=== PATIENT | male | born 1975 ===

== ENCOUNTER 2023-09-21 09:58 | Emergency (ER) | payer MEDICAID, OTHER ==
[~2023-09-21] VITALS: Ht 165.1 cm; Wt 90.9 kg
[2023-09-21 11:30] LABS: Basophils # (auto) 0 10 ^3/uL (0-0.2); Basophils % (auto) 0.5 % (0.0-2.0); Eosinophils # (auto) 0.1 10 ^3/uL (0-0.8); Eosinophils % (auto) 1.6 % (0.0-7.0); Hematocrit 43.1 % (41.0-53.0); Lymphocytes # (auto) 1.7 10 ^3/uL (0.4-5.4); Lymphocytes % (auto) 25.7 % (10.0-50.0); Mean Corpuscular Hemoglobin 29.4 pg (28.0-32.0); Mean Corpuscular Hgb Conc. 34.8 g/dL (32.0-36.0); Mean Corpuscular Volume 84.5 fL (80.0-100.0); Monocytes # (auto) 0.5 10 ^3/uL (0-1.3); Monocytes % (auto) 7.8 % (0.0-12.0); Neutrophils # (auto) 4.2 10 ^3/uL (1.6-8.6); Neutrophils % (auto) 64.4 % (37.0-80.0); Nucleated Red Blood Cells % 0.1 %; Red Cell Distribution Width 13.5 % (11.8-14.3); White Blood Cell 6.5 10^3/uL (4.4-10.8)
[2023-09-21] MEDS ORDERED: LORazepam 0.5 MG TAB PO ONE (11:30)
[2023-09-21 11:33] LABS: Alanine Aminotransferase 29 U/L (7-40); Albumin 4.5 g/dL (3.2-4.8); Alkaline Phosphatase 53 U/L (46-116); Anion Gap 6 (5-15); Aspartate Aminotransferase 20 U/L (13-40); BUN/Creatinine Ratio 13.9 (10.0-20.0); Bilirubin, Total 0.5 mg/dL (0.2-1.0); Blood Alcohol < 3.0 mg/dL (<10); Blood Urea Nitrogen 15 mg/dL (9-23); Calcium 9.5 mg/dL (8.7-10.4); Carbon Dioxide 27 mmol/L (20-30); Chloride 105 mmol/L (98-107); Glucose 99 mg/dL (74-106); Potassium 4.1 mmol/L (3.5-5.1); Sodium 138 mmol/L (136-145); Total Protein 7.4 g/dL (5.7-8.2)
[2023-09-21 11:42] LABS: Amphetamine Screen, Urine Neg (NEGATIVE); Barbiturate Scree,Urine Neg (NEGATIVE); Benzodiazephine Screen, Urine Neg (NEGATIVE); Cocaine Screen, Urine Neg (NEGATIVE)
[2023-09-21 11:43] LABS: Cannabinoid Screen, Urine Neg (NEGATIVE); Opiate Scree,Urine Neg (NEGATIVE); Phencyclidine Screen, Urine Neg (NEGATIVE)
[2023-09-21] MEDS ORDERED: ARIP5TAB36 PO (19:41)
[2023-09-22 08:07] VITALS: PULSE 95; RESP 17; O2SAT 95
[2023-09-22] MEDS ORDERED: HYDR50TA69 PO (08:58)
[2023-09-22] MEDS ORDERED: SERT-206 PO (09:08)
[2023-09-22] MEDS ORDERED: IRBE300T43 PO (09:08)
[2023-09-22] MEDS ORDERED: [UNRECOGNIZED DRUG - CODE] PO (09:08)
[2023-09-22] MEDS ORDERED: RIS1T PO (09:15)
[2023-09-22] MEDS ORDERED: risperiDONE 1 MG TAB PO ONE (10:00)
[2023-09-22] MEDS ORDERED: SERTRALINE HCL 50 MG TAB PO ONE (10:00)
[2023-09-22] MEDS ORDERED: GABAPENTIN 300 MG CAP PO ONE (22:00)
[2023-09-22] MEDS ORDERED: PROPRANOLOL HCL 20 MG TAB PO ONE (22:00)
[2023-09-22] MEDS ORDERED: GABAPENTIN 100 MG CAP PO ONE (22:00)
[2023-09-22] MEDS ORDERED: LORazepam 0.5 MG TAB PO ONE (22:45)
[2023-09-23] MEDS ORDERED: LORazepam 0.5 MG TAB ONE (00:14)
[2023-09-23] MEDS ORDERED: SERTRALINE HCL 50 MG TAB ONE ×2 (06:40→06:46)
[2023-09-23] MEDS ORDERED: SERTRALINE HCL 50 MG TAB PO ONE (07:00)
[2023-09-23 22:00] VITALS: PULSE 98; RESP 20; O2SAT 96
[2023-09-24 09:36] VITALS: PULSE 88; RESP 16; O2SAT 98
[2023-09-24 20:41] VITALS: BP 145/84; PULSE 102; RESP 20; TEMP 98.1; O2SAT 95
[2023-09-24] MEDS ORDERED: LORazepam 2MG/ML-1ML VIAL ONE (21:13)
[2023-09-24] MEDS ORDERED: LORazepam 2MG/ML-1ML VIAL IM ONE (21:15)
== END 2023-09-25 00:30 | disposition home or self-care (01) ==
LOC: ER 09:58 → EDBD 09:58 → ER 19:46
DX: R45.851 Suicidal ideations (principal); F32.9 Major depressive disorder, single episode, unspecified; F41.9 Anxiety disorder, unspecified; Z79.899 Other long term (current) drug therapy
CPT/HCPCS: 36415; 80053; 80307; 80320; 80329; 85025; 96372; 99285; J2060